=== PATIENT | male | born 1995 ===

== ENCOUNTER 2016-11-03 20:17 | Emergency (ER) | payer BC ==
[~2016-11-03] VITALS: Ht 182.9 cm; Wt 93.2 kg
[2016-11-03 20:22] VITALS: TEMP 36.7; Ht 182.9 cm; Wt 93.2 kg
[2016-11-03] MEDS ORDERED: RANITIDINE HCL 150 MG TAB PO ONE (21:00)
[2016-11-03] MEDS ORDERED: PRED50TA PO (21:28)
[2016-11-03] MEDS ORDERED: EPP3/2 IM (21:28)
--- NOTE | 2016-11-03 22:33 | EMERGENCY ROOM VISIT NOTE ---
History Report prepared by Mau: Mike Ott Under the Supervision of: Dr. Mauricio Lopez M.D. First contact with patient: 20:33 Chief Complaint: ALLERGIC REACTION Stated Complaint: SWOLLEN THROAT History of Present Illness The patient is a 20 year old male who presents to the Emergency Room for an allergic reaction that occurred at 1840, two hours prior to arrival. The patient states that he began to chew on a piece of "Extra Mint" gum, shortly before he started to feel his throat swell. He states that he could "feel his throat closing" and was having a difficult time breathing. He also became very diaphoretic. He took a Benadryl tablet at 1945, one hour prior to arrival. He feels improved at this time, but states that he feels his throat is slightly swollen. The patient denies LOC, headache, fevers, chills, visual changes, neck pain, chest pain, nausea, vomiting, abdominal pain, back pain, melena, hematochezia, urinary symptoms, numbness, weakness, lymphadenopathy, rash, or other complaints. Source of History: patient Onset: 2 hours [employer] Position: throat Quality: other (Swelling) Timing: other (Improving) Associated Symptoms: + SOB, + diaphoresis, No LOC Review of Systems See HPI for pertinent positives and negatives. A total of ten systems were reviewed and were otherwise negative. Past Medical & Surgical Patient denies any past medical/surgical histories. Family History Cancer Hypertension Social History Smoking Status: Never Smoker Marital Status: in relationship Housing Status: lives with family Occupation Status: student Current/Historical Medications Scheduled Prednisone (Prednisone), 50 MG PO DAILY Scheduled PRN Epinephrine (Epipen), 0.3 MG IM UD PRN for ALLERGIC REACTION Allergies Coded Allergies: No Known Allergies (Unverified , 11/03/16) Physical Exam Vital Signs Date Time Temp Pulse Resp B/P Pulse Ox O2 Delivery O2 Flow Rate FiO2 11/03/16 20:22 36.7 85 18 138/85 98 Room Air Physical Exam GENERAL: Awake, alert, well-appearing, in no distress HENT: Normocephalic, atraumatic. There is minimal swelling to the very tip of the uvula. EYES: Normal conjunctiva. Sclera non-icteric. NECK: Supple. No nuchal rigidity. FROM. No JVD. RESPIRATORY: Clear to auscultation. CARDIAC: Regular rate, normal rhythm. Extremities warm and well perfused. Pulses equal. ABDOMEN: Soft, non-distended. No tenderness to palpation. No rebound or guarding. No masses. RECTAL: Deferred. MUSCULOSKELETAL: Chest examination reveals no tenderness. The back is symmetrical on inspection without obvious abnormality. There is no CVA tenderness to palpation. No joint edema. LOWER EXTREMITIES: Calves are equal size bilaterally and non-tender. No edema. No discoloration. NEURO: Normal sensorium. No sensory or motor deficits noted. SKIN: No rash or jaundice noted. Medical Decision & Procedures Medications Administered Medications (Trade) Dose Ordered Sig/Raman Route Start Time Stop Time Status Last Admin Dose Admin Prednisone (PredniSONE TAB) 60 mg NOW STAT PO 11/03/16 20:56 11/03/16 20:57 DC 11/03/16 21:32 60 MG Ranitidine HCl (zANTac TAB) 150 mg NOW ONCE PO 11/03/16 21:00 11/03/16 21:01 DC 11/03/16 21:31 150 MG ED Course 2050: The patient was evaluated in room B7. A complete history and physical exam was performed. 2055: Ordered Prednisone 60 mg PO. 2099: Ordered zANTac Tablet PO. 2206: I reevaluated the patient. Discussed results and discharge instructions: he verbalized understanding and agreement. The patient is ready for discharge. Medical Decision Triage Nursing notes reviewed and agree them. The patient's history was concerning for possible allergic reaction. Differential diagnosis: Etiologies such as allergic reaction, anaphylaxis, urticaria, Main-Clifford syndrome, toxic epidermal necrolysis, erythema multiforme, cellulitis, as well as others were entertained. Physical examination: As above. ER treatment provided: Zantac 150 mg PO Prednisone 60mg PO On reassessment the patient felt better. Diagnostic interpretation by me: Deferred It appears the patient had an allergic reaction. The above treatment did well to reverse the symptoms. Repeat examination of the oropharynx revealed no edema. Improved. The patient was given EpiPen training. By the evaluation outlined above emergent etiologies such as airway compromise, Main-Clifford syndrome, toxic epidermal necrolysis, erythema multiforme, cellulitis, as well as others were deemed relatively unlikely. The patient was informed about the findings as listed above. All questions were answered and he was pleased with the treatment. Return instructions were outlined and the patient was discharged in stable condition. Outpatient prescription management: EpiPen prednisone Referral: The patient was referred back to his primary care physician for follow-up when he returns home for a recheck of the current condition and to discuss allergy referral. The chart was completed utilizing [employer] Speech voice recognition software. Grammatical errors, random word insertions, pronoun errors, and incomplete sentences are an occasional side effect of this system due to software limitations, ambient noise, and hardware issues. Any formal questions or concerns about the content, text, or information contained within the body of this dictation should be directly addressed to the physician for clarification. Impression Primary Impression: Allergic reaction Scribe Attestation The scribe's documentation has been prepared under my direction and personally reviewed by me in its entirety. I confirm that the note above accurately reflects all work, treatment, procedures, and medical decision making performed by me. Departure Information Dispostion Home / Self-Care Prescriptions Epinephrine (EPIPEN) 0.3 Mg/0.3 Ml Inj 0.3 MG IM UD Y for ALLERGIC REACTION, #1 BOX Prov: Mauricio Lopez MD 11/03/16 Prednisone (Prednisone) 50 Mg Tab 50 MG PO DAILY for 2 Days, #2 TAB Prov: Mauricio Lopez MD 11/03/16 Forms HOME CARE DOCUMENTATION FORM, IMPORTANT VISIT INFORMATION Patient Instructions [facility] Additional Instructions ALLERGIC REACTION INSTRUCTIONS: DO NOT drive, drink alcohol, operate machinery, or perform dangerous activities today. You were given medications in the ER that can affect your ability to safely function or operate a vehicle. Epi-Pen: Use one injection as instructed for severe allergic reactions associated with shortness of breath, difficulty breathing, or throat or tongue swelling. If you use this injection call 911 or proceed immediately to the nearest Emergency Room. Prednisone 50mg: Once daily until the prescription is finished. It is best to take this earlier in the day as some patients note occasional difficulty falling asleep when taken in the late evening. Diphenhydramine(Benadryl) 25mg: use 25 to 50 mg every six hours for swelling, itching, or hives. This medication is sedating and will cause drowsiness. Avoid alcohol, operating machinery or dangerous equipment, working on ladders or roofs, DRIVING, or situations where being under the influence may be dangerous. Zantac 75: Take two pills twice a day along with Benadryl as needed for swelling , itching, or hives. Most people know this for its affect on the stomach, but it also acts similar to, but less potent than Benadryl for allergic reactions. Both the Benadryl and the Zantac are available [id number]. Continue current medications. Return to the emergency department for worsening of your rash, swelling of your face, lips, tongue, or throat, difficulty breathing, vomiting, or as needed. Follow-up with your primary care physician when you return home for a recheck of your current condition. Discuss referral to allergy.
[2016-11-03 22:50] VITALS: BP 131/73; PULSE 86; O2SAT 95
== END 2016-11-03 22:50 | disposition home or self-care (01) ==
LOC: C.EDB 20:19
DX: T78.40XA Allergy, unspecified, initial encounter (principal); X58.XXXA Exposure to other specified factors, initial encounter; Z80.9 Family history of malignant neoplasm, unspecified; Z82.49 Family history of ischemic heart disease and other diseases of the circulatory system